=== PATIENT | male | born 1955 | race Caucasian/White ===

== ENCOUNTER 2020-10-21 09:20 | Observation (INO) ==
[2020-10-21 10:58] LABS: ABS Lymphocytes 0.9 10^3/ul (1.0-4.8); ABS Neutrophils 12.3 10^3/ul (1.5-7.7); Hematocrit 40 % (42-52); Hemoglobin 13.4 g/dL (14.0-18.0); Lymphocyte % 6.5 %; Mean Corpuscular HGB Conc 34 g/dL (31-36); Mean Corpuscular Hemoglobin 29 pg (27-31); Mean Corpuscular Volume 87 fL (80-94); Nucleated Red Blood Cells % 0.1; Platelet Count 268 10^3/uL (150-450); Red Blood Count 4.56 10^6 /uL (4.18-5.48); Red Cell Distribution Width 13 % (10-15); White Blood Count 14.3 10^3/uL (3.5-10.8)
[2020-10-21 11:44] LABS: Calcium 9.1 mg/dL (8.6-10.3); EGFR African American 126.5 (>60); EGFR Non-African American 104.5 (>60); Potassium 3.8 mmol/L (3.5-5.0)
[2020-10-21] MEDS ORDERED: Famotidine IV 10 MG/ML 2 ml VIAL (20 mg) IV ONE (12:01)
[2020-10-21] MEDS ORDERED: Buffered Lidocaine 1% SYRIN 1 ml INTRADERM ONE (12:01)
[2020-10-21] MEDS ORDERED: Famotidine IV 10 MG/ML 2 ml VIAL (20 mg) ONE (12:36)
[2020-10-21] MEDS: NS 0.9% 1000 ml BAG 1,000 ML IV SCH ×4 (12:42→23:47)
[2020-10-21] MEDS ORDERED: Lactated Ringers 1000 ml BAG 1,000 ML IV SCH (13:00)
[2020-10-21] MEDS ORDERED: fentaNYL 100 mcg/2 ml 50 MCG/ML VIAL ONE (13:06)
[2020-10-21] MEDS ORDERED: Propofol 10 MG/ML 20 ML BTL ONE (13:06)
[2020-10-21] MEDS ORDERED: Ondansetron 4 mg VIAL 2 MG/ML 2 ml VIAL ONE (13:06)
[2020-10-21] MEDS ORDERED: Lidocaine 2% PF 5 ML VIAL ONE (13:06)
[2020-10-21] MEDS ORDERED: Midazolam 5 mg/5 ml VIAL 1 mg/ml 5 ml VIAL (5 mg) ONE (13:06)
[2020-10-21] MEDS ORDERED: Dexamethasone IV 4 MG/ML VIAL 1 ml VIAL ONE (13:06)
[2020-10-21] MEDS ORDERED: cefTRIAXone 2 GM ADDV.VIAL ONE (13:38)
[2020-10-21] MEDS ORDERED: Rocuronium 50 mg VIAL 10 mg/ml 5 ml VIAL (50 mg) ONE (13:51)
[2020-10-21] MEDS ORDERED: Phenylephrine 40 mcg/mL 10mL (400mcg) SYRINGE ONE (14:02)
[2020-10-21] MEDS ORDERED: Sugammadex 500 MG/5 ML 5 ml VIAL IV PUSH ONE (14:35)
[2020-10-21] MEDS ORDERED: Ondansetron 4 mg VIAL 2 MG/ML 2 ml VIAL IV PRN (15:03)
[2020-10-21] MEDS ORDERED: Naloxone 0.4 mg VIAL 0.4 mg/ml 1 ml VIAL IV PRN (15:03)
[2020-10-21] MEDS ORDERED: fentaNYL 100 mcg/2 ml 50 MCG/ML VIAL IV PRN (15:03)
[2020-10-21] MEDS ORDERED: Lidocaine 2% JELLY 6 ML TOPICAL ONE (15:47)
[2020-10-21] MEDS ORDERED: oxyCODONE/Acetamin 5/325 mg TAB PO PRN (16:52)
[2020-10-22] MEDS ORDERED: Lidocaine 2% JELLY 6 ML TOPICAL PRN (04:00)
[2020-10-22] MEDS: NS 0.9% 1000 ml BAG 1,000 ML IV SCH (06:22)
[2020-10-22 11:16] VITALS: BP 132/74
== END 2020-10-22 12:36 | disposition home or self-care (01) ==
LOC: SSU 09:20 → ED 09:20 → SSU 12:00
PROVIDERS: ADMIT Urology; ATTEND Urology